=== PATIENT | female | born 1955 | race Hispanic/Latino ===

== ENCOUNTER 2019-01-27 05:18 | Observation (INO) | payer MEDICARE, OTHER ==
[2019-01-25 15:08] LABS: BASOPHILS % 0.5 % (0.0-1.0); EOSINOPHILS # (AUTO) 0.1 (0.0-0.4); EOSINOPHILS % 1.1 % (0.0-6.0); HEMATOCRIT 39.7 % (34.2-44.1); HEMOGLOBIN 13.3 g/dL (12.0-16.0); LYMPHOCYTES # (AUTO) 2.6 (1.0-3.2); LYMPHOCYTES % 34.9 % (18.0-39.1); MEAN CORPUSCULAR HEMOGLOBIN 28.9 pg (28-32); MEAN CORPUSCULAR HGB CONC 33.5 g/dL (31-35); MEAN CORPUSCULAR VOLUME 86.1 fL (81-99); MONOCYTES # (AUTO) 0.4 (0.2-0.8); MONOCYTES % 5.7 % (4.4-11.3); NEUTROPHILS # (AUTO) 4.3 (2.1-6.9); PLATELET COUNT 194 x10e3/uL (140-360); RED BLOOD COUNT 4.61 x10e6/uL (3.6-5.1); RED CELL DISTRIBUTION WIDTH 13.9 % (11.7-14.4)
--- NOTE | 2019-01-25 15:14 | Diagnostic Imaging Report ---
EXAMINATION: CHEST 2 VIEWS INDICATION: Pre-admit. COMPARISON: None FINDINGS: TUBES and LINES: None. LUNGS: Lungs are moderately inflated. There is no evidence of pneumonia or pulmonary edema. PLEURA: No pleural effusion or pneumothorax. HEART AND MEDIASTINUM: The cardiomediastinal silhouette is unremarkable. There are atherosclerotic calcifications within the aorta. BONES AND SOFT TISSUES: No acute osseous abnormality. UPPER ABDOMEN: No free air under the diaphragm. IMPRESSION: No acute radiographic abnormality. Signed by: Dr. Fidelina Rangel MD on 01/25/2019 3:11 PM
[2019-01-25 15:20] LABS: INR 0.89; PARTIAL THROMBOPLASTIN TIME 30.3 seconds (23.8-35.5); PROTHROMBIN TIME 12.5 seconds (11.9-14.5)
[2019-01-25 15:24] LABS: ANION GAP 11.9 mmol/L (8-16); BLOOD UREA NITROGEN 14 mg/dL (7-26); BUN/CREATININE RATIO 18 (6-25); CALCIUM 9.9 mg/dL (8.4-10.2); CARBON DIOXIDE 24 mmol/L (22-29); CHLORIDE 103 mmol/L (98-107); EST GLOMERULAR FILTRATION RATE > 60 ML/MIN (60-); GLUCOSE 200 mg/dL (74-118); POTASSIUM 3.9 mmol/L (3.5-5.1); SODIUM 135 mmol/L (136-145)
[~2019-01-27] VITALS: Ht 154.9 cm; Wt 101.7 kg
[2019-01-27] VITALS (7 sets, daily range): BP systolic 126–140; BP diastolic 58–64
[~2019-01-27 05:18] MED LIST: FOLIC ACID1 MG PO; GABAPENTIN300 MG PO; METFORMIN HCL500 MG PO; METHOTREXATE2.5 MG INJ; ONCE DAILY1 EACH PO; TYLENOL WITH C1 EACH PO; VIT B12 PO; VIT D PO; ZOLOFT50 MG PO
[2019-01-27] MEDS ORDERED: CEFAZOLIN SOD 2 GM/D5W 50ML 50 ML IV ONE (05:27)
--- OUTSIDE RECORDS SUMMARY | 2019-01-27 05:31 | XMS REPORT | Clinical Summary ---
Author Author [place] [facility] Organization [facility] Address Unknown Phone Unavailable Care Team Providers Care Cigar Patcher Name Role Phone Deb Atwood MD PCP Allergies Comments Active Allergy Reactions Severity Noted Date Converted from [facility]; codein - throat swolls ;vicodine - throat swolls;avolox - hives; Other DECREASES BLOOD PRESSURE (VERY LOW) Tramadol Other (See High 09/04/2017 Comments) Medications End Date Status Medication Sig Dispensed Refills Start Date Active fluticasone (FLONASE) 50 1 spray by 0 mcg/actuation nasal spray Nasal route daily. Active folic acid (FOLVITE) 1 MG Take 1 mg by 0 tablet mouth daily. Active gabapentin (NEURONTIN) Take 300 mg 0 300 MG capsule by mouth 2 (two) times daily. Active cholecalciferol (VITAMIN Take 1,000 0 D3) 1,000 unit tablet Units by mouth daily. Active methotrexate, PF, 25 Inject 25 mg 0 mg/0.5 mL AtIn subcutaneousl y once a week. Active acetaminophen-codeine Take 1 tablet 0 (TYLENOL #4) 300-60 mg by mouth per tablet every 4 (four) hours as needed for Pain. Active lancets 30 gauge Inject 1 100 each 3 MiscIndications: application 7 Controlled type 2 subcutaneousl diabetes mellitus with y daily. other specified complication, without long-term current use of insulin (HCC) Active blood sugar diagnostic 1 strip by 100 strip 3 (GLUCOSE TEST) Miscellaneous 7 StrpIndications: route daily. Controlled type 2 diabetes mellitus with other specified complication, without long-term current use of insulin (HCC) Active omega-3 acid ethyl esters TAKE 2 360 capsule 3 (LOVAZA) 1 gram CAPSULES BY 7 capsuleIndications: MOUTH TWICE Uncontrolled type 2 DAILY diabetes mellitus with complication, unspecified retirement insulin use status, Hypertriglyceridemia Active aspirin 81 MG EC tablet Take 81 mg by 0 mouth daily. 08/27/2018 metFORMIN (GLUCOPHAGE) Take 1 tablet 60 tablet 11 1000 MG (1,000 mg 7 tabletIndications: Type 2 total) by diabetes mellitus with mouth 2 (two) complication, without times daily long-term current use of with insulin (HCC) breakfast and dinner. 09/04/2018 buPROPion (WELLBUTRIN SR) Take 1 tablet 60 tablet 11 150 MG 12 hr (150 mg 7 tabletIndications: total) by Depression, unspecified mouth 2 (two) depression type, Tobacco times daily. abuse 09/04/2018 sertraline (ZOLOFT) 50 MG Take 1 tablet 30 tablet 11 tabletIndications: (50 mg total) 7 Depression, unspecified by mouth depression type daily. Active Problems Problem Noted Date Spinal stenosis 08/07/2017 Rheumatoid arthritis involving multiple sites 08/07/2017 Morbid obesity with BMI of 40.0-44.9, adult 08/07/2017 Vitamin D deficiency 08/07/2017 Tobacco abuse 08/07/2017 Type 2 diabetes mellitus with other specified complication 04/08/2010 Overview: Converted from [facility] Depression 04/08/2010 Overview: Converted from [facility] Mixed hyperlipidemia 04/02/2010 Overview: Converted from [facility] Immunizations Name Dates Previously Given Next Due Influenza Three-TIV 08/07/2017 Non-PF 5+ YR Family History Medical History Relation Name Comments Cancer Brother Diabetes Brother Cancer Father Diabetes Maternal Grandmother Heart disease Maternal Grandmother Diabetes Mother Heart disease Mother Cancer Paternal Grandmother Cancer Sister Diabetes Sister Relation Name Status Comments Brother Father Maternal Grandmother Mother Paternal Grandmother Sister Social History Date Tobacco Use Types Packs/Day Years Used Current Some Day Smoker 0.5 40 Smokeless Tobacco: Never Used Tobacco Cessation: Ready to Quit: Yes Alcohol Use Drinks/Week oz/Week Comments No Sex Assigned at Date Recorded Not on file Industry Job Start Date Occupation Not on file Not on file Not on file Travel End Travel History Travel Start No recent travel history available. Last Filed Vital Signs Not on file Plan of Treatment Health Maintenance Due Date Last Done Comments INFLUENZA VACCINE 07/19/2018 08/07/2017 Results Not on fileafter 01/26/2018 Insurance Payer Benefit Subscriber ID Type Phone Address Plan / Group MEDICARE MEDICARE xxxxxxxxxx Medicare PART B xxxxxxxxx Other Govt ([facility], [place], [facility], etc.)
--- OUTSIDE RECORDS SUMMARY | 2019-01-27 05:31 | XMS REPORT | Clinical Summary ---
Author Author [facility] Address Unknown Phone Unavailable Care Team Providers Care Printer Helper Name Role Phone Patricia Clancy MD PCP Allergies Comments Active Allergy Reactions Severity Noted Date Moxifloxacin Hives 06/10/2017 Drops B/P Tramadol Other (See High 01/07/2017 Comments) Medications End Date Status Medication Sig Dispensed Refills Start Date Active azelastine (ASTELIN) 137 1 spray into 0 mcg (0.1 %) nasal spray each nostril 2 (two) times a day. Use in each nostril as directed Active fluticasone (FLONASE) 50 2 sprays by 0 mcg/actuation nasal spray Each Nare route daily. Active cholecalciferol, vitamin Take 1,000 0 D3, (VITAMIN D3) 1,000 Units by unit tablet mouth daily. Active folic acid (FOLVITE) 1 MG Take 1 mg by 0 tablet mouth daily. Active acetaminophen-codeine Take 1 tablet 0 (TYLENOL WITH CODEINE #3) by mouth 300-30 mg per tablet every 4 (four) hours as needed for moderate pain. Active methotrexate, PF, 25 Inject 25 mg 0 mg/0.4 mL auto-injector under the skin every 7 days. Active clobetasol 0.05 % Apply 1 118 mL 5 lotionIndications: application 7 Psoriasis topically 2 (two) times a day. Apply BID for 2 weeks, then take 1 week off, repeat this cycle PRN flares Active cyanocobalamin 100 MCG Take 1 tablet 90 tablet 1 tabletIndications: B12 (100 mcg 7 deficiency total) by mouth daily. Active ergocalciferol (VITAMIN Take 1 4 capsule 3 D2) 50,000 unit capsule capsule 7 (50,000 Units total) by mouth once a week. Active diclofenac (VOLTAREN) 75 Take 75 mg by 0 MG EC tablet mouth 3 (three) times a day. Active cyclobenzaprine Take 5 mg by 0 (FLEXERIL) 5 mg tablet mouth 3 (three) times a day as needed for muscle spasms. Active methylPREDNISolone Take 4 mg by 0 (MEDROL DOSEPAK) 4 mg mouth 2 (two) tablet times a day. follow package directions Active metFORMIN (GLUCOPHAGE) Take 1 tablet 270 tablet 1 500 mg tabletIndications: (500 mg 7 Type 2 diabetes mellitus total) by without complication, mouth 2 (two) without long-term current times a day use of insulin (HCC) with meals. Active sertraline (ZOLOFT) 100 Take 1 tablet 90 tablet 1 MG tabletIndications: (100 mg 7 Anxiety and depression total) by mouth daily. 02/26/2019 Active nabumetone (RELAFEN) 500 Take 1 tablet 60 tablet 11 MG tablet (500 mg 8 total) by mouth 2 (two) times a day. Active gabapentin (NEURONTIN) TAKE 1 180 capsule 0 300 mg capsule CAPSULE(300 8 MG) BY MOUTH TWICE DAILY 03/16/2018 Discontinued gabapentin (NEURONTIN) Take 1 180 capsule 3 300 mg capsule capsule (300 7 mg total) by mouth 2 (two) times a day. 06/26/2018 buPROPion XL (WELLBUTRIN Take 1 tablet 90 tablet 1 XL) 150 MG 24 hr tablet (150 mg 7 total) by mouth daily. Active Problems No known active problems Encounters Care Team Description Date Type Specialty Cachorro Villar MD 12/16/2018 Hospital Radiology Encounter Cachorro Villar MD 12/16/2018 Hospital Radiology Encounter Cachorro Villar MD Acute pain of left knee (Primary Dx); Bilateral hip joint arthritis; Arthritis of knee, left 12/16/2018 Office Visit Orthopedic Surgery Patricia Clancy MD 06/03/2018 Documentation Family Medicine Lolis Rasmussen MD 03/16/2018 Refill Internal Medicine Mary Aguilar MD 03/16/2018 Refill Internal Medicine Patricia Clancy MD Anxiety and depression 03/16/2018 Refill Internal Medicine Bogdan Sanchez MD Primary osteoarthritis of left knee (Primary Dx); Sciatica of left side 02/26/2018 Office Visit Orthopedic Surgery Dorcas Stern MA Left knee pain, unspecified chronicity (Primary Dx) 02/25/2018 Orders Only Orthopedic Surgery Dorcas Stern ZULY Left knee pain, unspecified chronicity (Primary Dx) 02/11/2018 Orders Only Orthopedic Surgery after 01/26/2018 Immunizations Name Dates Previously Given Next Due FLUZONE HIGH-DOSE PF 08/07/2017 Pneumococcal Conjugate 01/07/2017 13-Valent Family History Medical History Relation Name Comments Cancer Brother Tuberculosis Brother Cancer Father Heart disease Maternal Grandfather Cancer Maternal Grandmother Diabetes Maternal Grandmother Heart disease Maternal Grandmother Stroke Maternal Grandmother Arthritis Mother Depression Mother Diabetes Mother Heart disease Mother Hypertension Mother Kidney disease Mother Stroke Mother Cancer Paternal Grandmother Cancer Sister Relation Name Status Comments Brother Brother Father Maternal Grandfather Maternal Grandmother Mother Paternal Grandmother Sister Social History Date Tobacco Use Types Packs/Day Years Used Started: 10/28/1976 Current Some Day Smoker Cigarettes 0.25 40 Alcohol Use Drinks/Week oz/Week Comments No Sex Assigned at Date Recorded Not on file Industry Job Start Date Occupation Not on file Not on file Not on file Travel End Travel History Travel Start No recent travel history available. Last Filed Vital Signs Time Taken Vital Sign Reading - Blood Pressure - - Pulse - - Temperature - - Respiratory Rate - - Oxygen Saturation - - Inhaled Oxygen - Concentration 12/16/2018 10:27 AM SUPERVISOR PAPER COATING Weight 98 kg (216 lb) 12/16/2018 10:27 AM SUPERVISOR PAPER COATING Height 154.9 cm (5' 1") 12/16/2018 10:27 AM SUPERVISOR PAPER COATING Body Mass Index 40.81 Plan of Treatment Health Maintenance Due Date Last Done Comments CERVICAL CANCER SCREENING 1978 COLON CANCER SCREENING 2007 SHINGLES VACCINES (#1) 2007 BREAST CANCER SCREENING 02/09/2019 02/09/2017, 02/09/2017, 01/07/2017 INFLUENZA VACCINE 05/19/2019 08/07/2017 Procedures Comments Procedure Name Priority Date/Time Associated Diagnosis XR KNEE 4+ VW LEFT Routine 12/16/2018 Acute pain of left knee 10:48 AM SUPERVISOR PAPER COATING XR LEG LENGTH EVALUATION Routine 12/16/2018 Acute pain of left knee 10:43 AM SUPERVISOR PAPER COATING IL ARTHROCENTESIS Routine 12/16/2018 Bilateral hip joint ASPIR&/INJ MAJOR JT/BURSA 10:15 AM SUPERVISOR PAPER COATING arthritis W/US IL ARTHROCENTESIS Routine 12/16/2018 Bilateral hip joint ASPIR&/INJ MAJOR JT/BURSA 10:15 AM SUPERVISOR PAPER COATING arthritis W/US MRI LOWER EXTREMITY Routine 11/08/2018 EXTERNAL STUDY 10:14 AM SUPERVISOR PAPER COATING XR KNEE 3 VW LEFT Routine 02/26/2018 Left knee pain, 1:21 PM CDT unspecified chronicity IL ARTHROCENTESIS Routine 02/26/2018 Primary osteoarthritis of ASPIR&/INJ MAJOR JT/BURSA 1:00 PM CDT left knee W/O US HEMOGLOBIN A1C Routine 02/16/2018 after 01/26/2018 Results * XR Knee 4+ Vw Left (12/16/2018 10:48 AM SUPERVISOR P[employer] COATING) Narrative Performed At [facility] Left knee radiographs demonstrate end-stage arthritis of the left knee with complete medial [id number] contact as well as large osteophytes sclerosis and cyst. Long radiograph demonstrates varus malalignment of left lower extremity due to end-stage medial compartment knee arthritis.There is a well aligned right knee arthroplasty in place. 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 Performing Organization Address City/[facility] Phone Number [facility] [address] [place] [address] * Large Joint Arthrocentesis: hip, R hip joint (12/16/2018 10:15 AM SUPERVISOR PAPER COATING) Narrative Performed At Cachorro Villar MD 12/21/2018 10:54 AM Large Joint Arthrocentesis: hip, R hip joint Consent given by: patient Site marked: site marked Timeout: Immediately prior to procedure a time out was called to verify the correct patient, procedure, equipment, customer support engineer and site/side marked as required Supporting Documentation Indications: pain Procedure Details Preparation: Patient was prepped and draped in the usual sterile fashion Ultrasound guided: yes Platelet Rich Plasma Used: no PRP Used Location: hip - R hip joint Right side: Needle size: 20 G Approach: anterolateral Right hip medications administered: 40 mg methylPREDNISolone acetate 40 mg/mL Patient tolerance: patient tolerated the procedure well with no immediate complications * Large Joint Arthrocentesis: hip, L hip joint (12/16/2018 10:15 AM SUPERVISOR P[employer]ER COATING) Narrative Performed At Cachorro Villar MD 12/21/2018 10:54 AM Large Joint Arthrocentesis: hip, L hip joint Consent given by: patient Site marked: site marked Timeout: Immediately prior to procedure a time out was called to verify the correct patient, procedure, equipment, customer support engineer and site/side marked as required Supporting Documentation Indications: pain Procedure Details Preparation: Patient was prepped and draped in the usual sterile fashion Ultrasound guided: yes Platelet Rich Plasma Used: no PRP Used Location: hip - L hip joint Left side: Needle size: 20 G Approach: anterolateral Left hip medications administered: 40 mg methylPREDNISolone acetate 40 mg/mL Patient tolerance: patient tolerated the procedure well with no immediate complications * MRI Lower Extremity External Study (11/08/2018 10:14 AM SUPERVISOR PAPER COATING) Narrative Performed At This exam was not acquired at a [facility] facility and has not been [facility] interpreted by a [facility] Provider.The exam was imported into our imaging system for comparisons purposes. Performing Organization Address City/[facility]/Zipcode Phone Number [facility] [address] [place] [address] * XR Knee 3 Vw Left (02/26/2018 1:21 PM CDT) Narrative Performed At [facility] X-rays left knee 3 views standing AP lateral sunrise views 02/26/2018: X-rays reveal moderate arthritis medial compartment of the compartment with some narrowing and spur formation in the patellofemoral compartment joint space still reasonably spared. Performing Organization Address City/State/Zipcode Phone Number CHRISTOPHE AREVALO [address] [place] [address] * Large Joint Arthrocentesis (02/26/2018 1:00 PM CDT) Narrative Performed At Bogdan Sanchez MD 02/27/20181:14 PM Large Joint Arthrocentesis Consent given by: patient Timeout: Immediately prior to procedure a time out was called to verify the correct patient, procedure, equipment, customer support engineer and site/side marked as required Supporting Documentation Indications: pain Procedure Details Preparation: Patient was prepped and draped in the usual sterile fashion Ultrasound guided: no Platelet Rich Plasma Used: no PRP Used Location: knee - L knee Left side: Needle size: 20 G Approach: lateral Left knee medications administered: 2 mL bupivacaine 0.25 % (2.5 mg/mL); 3 mL lidocaine 10 mg/mL (1 %); 40 mg methylPREDNISolone acetate 40 mg/mL Aspirate amount: 0 mL Patient tolerance: patient tolerated the procedure well with no immediate complications * Hemoglobin A1c (02/16/2018) Hemoglobin A1C 6.3 % Specimen Blood after 01/26/2018 Insurance Payer Benefit Subscriber ID Type Phone Address Plan / Group MEDICARE MEDICARE xxxxxxxxxxx Medicare [place], [place] PART A AND B xxxxxxxxx Advance Directives Patient has advance care planning documents on file. For more information, kurt aparicio contact: Vivek Smith [address] [place] [address]
--- OUTSIDE RECORDS SUMMARY | 2019-01-27 05:31 | XMS REPORT ---
Author Author [facility] Address Unknown Phone Unavailable Care Team Providers Care Imaging Aide Name Role Phone CLAY SINGLETON Unavailable Unavailable Payers Payer Name Policy Type Policy Number Effective Date Expiration Date Problems This patient has no known problems. Allergies, Adverse Reactions, Alerts This patient has no known allergies or adverse reactions. Medications This patient has no known medications. Results Test Description Test Time Test Comments Text Results Atomic Results Result Comments CHEST 2 VIEWS 2019-01-25 15:08:00 [facility] [address] [place] [id number] Patient Name: ALVIN CALLES MR #: [id number] : 1955 Age/Sex: 63/F Req #: [id number] Adm Physician: Ordered by: CLAY SINGLETON MD Report #: [id number] Location: OR Room/Bed: Procedure: [id number] DX/CHEST 2 VIEWS Exam Date: 01/25/19 Exam Time: 1450 REPORT STATUS: Signed EXAMINATION: CHEST 2 VIEWS INDICATION: Pre-admit. COMPARISON: None FINDINGS: TUBES and LINES: None. LUNGS: Lungs are moderately inflated. There is no evidence of pneumonia or pulmonary edema. PLEURA: No pleural effusion or pneumothorax. HEART AND MEDIASTINUM: The cardiomediastinal silhouette is unremarkable. There are atherosclerotic calcifications within the aorta. BONES AND SOFT TISSUES: No acute osseous abnormality. UPPER ABDOMEN: No free air under the diaphragm. IMPRESSION: No acute radiographic abnormality. Signed by: Dr. Mally Austin MD on 01/25/2019 3:11 PM Dictated By: MALLY AUSTIN MD [id number] Transcribed By: SUSHMA on 01/25/19 1511 COPY TO: CLAY SINGLETON MD
[2019-01-27] MEDS ORDERED: THROMBIN FOR SOLN 5,000 UNIT VIAL ONE (06:48)
[2019-01-27] MEDS ORDERED: GELATIN SPONGE 12-7MM ONE (06:48)
[2019-01-27] MEDS ORDERED: BUPIVACAINE 0.5%/EPI 30 ML SDV INJ ONE (06:48)
[2019-01-27] MEDS ORDERED: BACITRACIN 50,000 UNIT VIAL ONE (06:49)
[2019-01-27] MEDS ORDERED: ACETAMINOPHEN 1000 MG/100 ML 100 ML IV ONE (07:16)
[2019-01-27] MEDS ORDERED: LIDOCAINE HCL (LTA) 4 ML SOLN ONE (07:16)
[2019-01-27] MEDS ORDERED: IBUPROFEN 250 ML IV ONE (08:16)
[2019-01-27] MEDS ORDERED: LACTATED RINGER'S 1,000 ML IV SCH (09:04)
[2019-01-27] MEDS ORDERED: HYDROMORPHONE 2MG/ML 2 MG/ML ML IV PRN ×2 (09:15→10:00)
[2019-01-27] MEDS ORDERED: CARISOPRODOL 350 MG TAB PO PRN ×2 (09:15→10:00)
[2019-01-27] MEDS ORDERED: MAGNESIUM/ALUMINUM/SIMETHICONE 30 ML UDC PO PRN ×2 (09:15→10:00)
[2019-01-27] MEDS ORDERED: ACETAMINOPHEN/CODEINE 300MG - 30MG TAB PO SCH ×2 (09:15→10:00)
[2019-01-27] MEDS ORDERED: ACETAMINOPHEN 325 MG TAB PO PRN ×2 (09:15→10:00)
[2019-01-27] MEDS ORDERED: CEPACOL SORE THROAT LOZENGES PO PRN ×2 (09:15→10:00)
[2019-01-27] MEDS ORDERED: MORPHINE SULFATE 5 MG/ML VIAL IM PRN ×2 (09:15→10:00)
[2019-01-27] MEDS ORDERED: ONDANSETRON HCL INJ 2MG/ML 2ML 2 MG/ML VIAL IV PRN ×2 (09:15→10:00)
[2019-01-27] MEDS ORDERED: ZOLPIDEM TARTRATE 5 MG TAB PO PRN ×2 (09:15→21:00)
[2019-01-27] MEDS ORDERED: PROMETHAZINE HCL (IM) 25 MG/ML VIAL IM PRN ×2 (09:15→10:00)
[2019-01-27] MEDS ORDERED: OXYCODONE/ACETAMINOPHEN 5-325 1 EACH TABLET PO PRN ×2 (09:15→10:00)
[2019-01-27] MEDS ORDERED: ALBUTEROL SULF 0.083% NEB SOLN 3 ML NEB ONE (09:17)
--- OUTSIDE RECORDS SUMMARY | 2019-01-27 09:19 | XMS REPORT | Clinical Summary ---
Author Author [place] [facility] Organization [facility] Address Unknown Phone Unavailable Care Team Providers Care Digital Strategy Manager Name Role Phone Deb Atwood MD PCP [...] 2 DAILY diabetes mellitus with complication, unspecified nursing home insulin use status, Hypertriglyceridemia Active aspirin 81 [...] xxxxxxxxxx Medicare PART B xxxxxxxxx Other Govt ([facility], [place], [facility], etc.)
--- OUTSIDE RECORDS SUMMARY | 2019-01-27 09:19 | XMS REPORT | Clinical Summary ---
Author Author [facility] Address Unknown Phone Unavailable Care Team Providers Care Industrial Engineering Technologist Name Role Phone Patricia Clancy MD PCP [...] Inhaled Oxygen - Concentration 12/16/2018 10:[address] MACHINE RUNNER Weight 98 kg (216 lb) 12/16/2018 10:[address] MACHINE RUNNER Height 154.9 cm (5' 1") 12/16/2018 10:[address] MACHINE RUNNER Body Mass Index 40.81 Plan of Treatment Health Maintenance Due Date Last Done Comments CERVICAL CANCER SCREENING 1978 COLON CANCER SCREENING 2007 SHINGLES VACCINES (#1) 2007 BREAST CANCER SCREENING 02/09/2019 02/09/2017, 02/09/2017, 01/07/2017 INFLUENZA VACCINE 05/19/2019 08/07/2017 Procedures Comments Procedure Name Priority Date/Time Associated Diagnosis XR KNEE 4+ VW LEFT Routine 12/16/2018 Acute pain of left knee 10:[address] MACHINE RUNNER XR LEG LENGTH EVALUATION Routine 12/16/2018 Acute pain of left knee 10:[address] MACHINE RUNNER [place] ARTHROCENTESIS Routine 12/16/2018 Bilateral hip joint ASPIR&/INJ MAJOR JT/BURSA 10:[address] MACHINE RUNNER arthritis W/US IA ARTHROCENTESIS Routine 12/16/2018 Bilateral hip joint ASPIR&/INJ MAJOR JT/BURSA 10:[address] MACHINE RUNNER arthritis W/US MRI LOWER EXTREMITY Routine 11/08/2018 EXTERNAL STUDY 10:[address] MACHINE RUNNER XR KNEE 3 VW LEFT Routine 02/26/2018 Left knee pain, 1:21 PM CDT unspecified chronicity [place] ARTHROCENTESIS Routine 02/26/2018 Primary osteoarthritis of ASPIR&/INJ MAJOR JT/BURSA 1:00 PM CDT left knee W/O US HEMOGLOBIN A1C Routine 02/16/2018 after 01/26/2018 Results * XR Knee 4+ Vw Left (12/16/2018 10:[address] MACHINE RUNNER) Narrative Performed At [facility] Left knee radiographs demonstrate end-stage arthritis of the left knee with complete medial [id number] contact as well as large osteophytes sclerosis and cyst. Long radiograph demonstrates varus malalignment of left lower extremity due to end-stage medial compartment knee arthritis.There is a well aligned right knee arthroplasty in place. 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 Performing Organization Address City/[facility] Phone Number [facility] [address] [place] [address] * Large Joint Arthrocentesis: hip, R hip joint (12/16/2018 10:[address] MACHINE RUNNER) Narrative Performed At Cachorro Villar MD 12/21/2018 10:54 AM Large Joint Arthrocentesis: hip, R hip joint Consent given by: patient Site marked: site marked Timeout: Immediately prior to procedure a time out was called to verify the correct patient, procedure, equipment, systems support engineer and site/side marked as required [...] hip, L hip joint (12/16/2018 10:[address] MACHINE RUNNER) Narrative Performed At Cachorro Villar MD 12/21/2018 10:54 AM Large Joint Arthrocentesis: hip, L hip joint Consent given by: patient Site marked: site marked Timeout: Immediately prior to procedure a time out was called to verify the correct patient, procedure, equipment, systems support engineer and site/side marked as required [...] Lower Extremity External Study (11/08/2018 10:[address] MACHINE RUNNER) Narrative Performed At This exam was not acquired at a [facility] facility and has not been [facility] interpreted by a [facility] Provider.The exam was imported into our imaging system for comparisons purposes. Performing Organization Address City/[facility]/Zipcode Phone Number [facility] [address] [place] [address] * XR Knee 3 Vw Left (02/26/2018 1:21 PM CDT) Narrative Performed At [facility] X-rays left knee 3 views standing AP lateral sunrise views 02/26/2018: X-rays reveal moderate arthritis medial compartment of the compartment with some narrowing and spur formation in the patellofemoral compartment joint space still reasonably spared. Performing Organization Address City/State/Zipcode Phone Number CHRISTOPHE AREVALO [address] [place] [address] * Large Joint Arthrocentesis (02/26/2018 1:00 PM CDT) Narrative Performed At Bogdan Sanchez MD 02/27/20181:14 PM Large Joint Arthrocentesis Consent given by: patient Timeout: Immediately prior to procedure a time out was called to verify the correct patient, procedure, equipment, systems support engineer and site/side marked as required [...] Plan / Group MEDICARE MEDICARE xxxxxxxxxxx Medicare [place], [place] PART A AND B xxxxxxxxx Advance Directives Patient has advance care planning documents on file. For more information, kurt aparicio contact: Vivek Smith [address] [place] [address]
[2019-01-27] MEDS ORDERED: FENTANYL CITRATE/PF 100MCG/2 ML INJ ONE ×2 (09:35→18:11)
--- NOTE | 2019-01-27 09:56 | NUR ---
Received patient from PACU at this time. Patient ambulated to bed. Sitting up caused feelings of anxiety, patient took deep breaths for a few minutes, then reported feeling better. Lung sounds clear. Bowel sounds active. Skin intact. Dressing to lower back clean and dry. REHANA hose and SCDs in place. L hand 20g IV asymptomatic, intact, and patent. Patient reports dull aching pain to back, but throbbing pain to L knee. 12/26. Oriented to room. Bed locked in lowest position. Call light in reach. Will continue to monitor.
[2019-01-27] MEDS: GABAPENTIN 300 MG CAP PO SCH (11:54)
[2019-01-27] MEDS: FOLIC ACID 1 MG TAB PO SCH (11:54)
[2019-01-27] MEDS: SERTRALINE HCL 50 MG TAB PO SCH (11:54)
[2019-01-27] MEDS: LACTATED RINGER'S 1,000 ML IV SCH ×3 (11:54→19:39)
--- NOTE | 2019-01-27 12:31 | NUR ---
Assisted patient to bathroom. Steady gait noted. Used IV pole to stabilize. Assisted back to bed. Patient reports her back just feels sore, but not bad enough for pain meds.
--- NOTE | 2019-01-27 13:11 | Operative Report ---
DATE OF PROCEDURE: 01/27/2019 SURGEON: Chris Love MD PREOPERATIVE DIAGNOSIS: L3-4 severe spinal stenosis with neurogenic claudication, M48.062. POSTOPERATIVE DIAGNOSIS: L3-4 severe spinal stenosis with neurogenic claudication, M48.062. PROCEDURES: 1. L3 bilateral partial decompressive laminectomy and L3-4 bilateral medial facetectomies, 40626. 2. L5 bilateral partial decompressive laminectomy, 60253. ANESTHESIA: General. INDICATIONS: The patient is a 63-year-old woman, who presents with L3-4 spinal stenosis above the level of previous L4-5 laminotomy. She has neurogenic claudication. She was taken to the operating room for L3-4 decompression. PROCEDURE IN DETAIL: After induction of general anesthesia, the patient was placed on the operating table in prone position. A preoperative x-ray was obtained and L3-4 segment was localized. A midline incision was created overlying her previous incision scar. Lumbar fascia was opened along the midline and subperiosteal dissection was carried out to expose the spinous processes and laminae of L3 and L4. Additional x-rays confirmed correct localization. The operating microscope was brought in. A high-speed drill equipped with a 5 mm [place] bur was used to drill the inferior aspect of the lamina of L3 and the superior aspect of lamina of L4 and the medial rim of the L3-4 facet joints bilaterally. The markedly hypertrophic ligamentum flavum was elevated away from the dura and resected in piecemeal fashion until the dura and the traversing L4 nerve roots were fully exposed and decompressed. The dura was then retracted to each side and the underlying disk was examined. A chronic disk osteophyte bulge was present, but no true disk herniation existed. The diskectomy was not performed. Excellent decompression of the nerve roots have been achieved. The wound was irrigated with bacitracin solution. A small piece of fat that had been harvested from the subcutaneous compartment was placed over the dura. The lateral recesses were lined with Gelfoam. The wound was closed in multiple layers with 0 and 2-0 Vicryl sutures. The skin was closed with 3-0 Monocryl sutures in subcuticular fashion. Steri-Strips and dressing were applied. The patient was awakened, extubated, and taken to postanesthesia care unit in stable condition. No intraoperative complications were encountered. ESTIMATED BLOOD LOSS: . MD DARRION Lu /[id number]
[2019-01-27] MEDS ORDERED: CEFAZOLIN SOD 1 GM/NS 50ML 50 ML IV SCH (14:00)
[2019-01-27] MEDS: CEFAZOLIN SOD 1 GM/NS 50ML 50 ML IV SCH ×2 (14:11→21:03)
[2019-01-27] MEDS ORDERED: DEXTROSE 50% SYRINGE 50 ML IV PRN (17:15)
[2019-01-27] MEDS: INSULIN REGULAR, HUMAN 100 UNIT/1 ML 3ML VIAL SQ SCH ×2 (17:35→20:25)
[2019-01-27] MEDS ORDERED: DEXAMETHASONE SOD PHOS INJ 4 MG/ML VIAL ONE (18:07)
[2019-01-27] MEDS ORDERED: ONDANSETRON HCL INJ 2MG/ML 2ML 2 MG/ML VIAL ONE (18:07)
[2019-01-27] MEDS ORDERED: SEVOFLURANE INHAL SOLN 250 ML PEN BTL ONE (18:07)
[2019-01-27] MEDS ORDERED: LIDOCAINE HCL 2% LOCAL INJ 5 ML SDV VIAL INJ ONE (18:07)
[2019-01-27] MEDS ORDERED: ROCURONIUM BROMIDE 10 MG/ML 5ML VIAL ONE (18:07)
[2019-01-27] MEDS ORDERED: PROPOFOL IV EMULSION 10 MG/ML 20 ML VIAL ONE (18:07)
[2019-01-27] MEDS ORDERED: MIDAZOLAM HCL 2 MG/2 ML VIAL ONE (18:11)
[2019-01-28] VITALS: BP 140/67
[2019-01-28 04:00] VITALS: BP 114/56
[2019-01-28] MEDS: CEFAZOLIN SOD 1 GM/NS 50ML 50 ML IV SCH (05:10)
[2019-01-28] MEDS ORDERED: METFORMIN HCL 500 MG TAB PO SCH ×2 (08:00→09:00)
[2019-01-28 08:52] VITALS: BP 105/55
[2019-01-28] MEDS: GABAPENTIN 300 MG CAP PO SCH (08:57)
[2019-01-28] MEDS: FOLIC ACID 1 MG TAB PO SCH (08:57)
[2019-01-28] MEDS: SERTRALINE HCL 50 MG TAB PO SCH (08:57)
[2019-01-28] MEDS ORDERED: ONDANSETRON HCL 4 MG ORAL DISINTEGRATING TAB PO PRN (09:00)
[2019-01-28] MEDS ORDERED: FOLIC ACID 1 MG TAB PO SCH (09:00)
[2019-01-28] MEDS ORDERED: GABAPENTIN 300 MG CAP PO SCH (09:00)
[2019-01-28] MEDS ORDERED: SERTRALINE HCL 50 MG TAB PO SCH (09:00)
[2019-01-28 10:02] VITALS: BP 105/55
[2019-01-28] MEDS ORDERED: NORCO 7.5-3251 EACH PO (10:08)
--- NOTE | 2019-01-28 10:45 | NUR ---
PT REQUESTED A WALKER, NURSE CALLED AND GOT ORDER, GOT ONE FROM PACU, HAD PT SIGN GREEN SHEET OLAMIDE TO ORDER AND FACESHEET LEFT ON CHART FOR MD SIGNATURE, GAVE PT WALKER. NO OTHER NEEDS FROM CASE MANAGEMENT
--- NOTE | 2019-01-28 11:31 | NUR ---
Patient discharged home, Alert with no distress, pain 2/10 on lower back. Patient requested foe rolling walker , Dr Love approved it , IV canula removed with tip intact, no ss of infiltration noted, prescription and discharge instructions paper given, patient verbalized understanding, at bed side giving her ride. transported via to [facility]
== END 2019-01-28 10:55 | disposition home or self-care (01) ==
LOC: OR 05:18 → PACU V 09:10 → IMCU 09:56 → UNDODISOB 09:56
PROVIDERS: ADMIT Neurological Surgery; ATTEND Neurological Surgery
CPT/HCPCS: 36415; 71046; 72020; 80048; 82948; 85025; 85610; 85730; 86850; 86900; 88304; 93005; G0378; J0690; J1100; J2001; J2250; J2405; J7121